=== PATIENT | male | born 1950 | race Caucasian/White ===

== ENCOUNTER → 2019-05-29 | Outpatient (CLI) | payer OTHER ==
--- NOTE | 2019-05-29 16:40 | 2DMMODE ---
[facility] [address] [place] [address] 2 D/M-MODE ECHOCARDIOGRAM Name: JANICE ROASS Room #: REG CL Leela#: [id number] Admission: 05/29/19 Attend Phys: See Herrera, Discharge: Date of : 54 Report #: [id number] THIS REPORT FOR: //name// APPROVED REPORT Study performed: 05/29/2019 14:17:52 EXAM: Comprehensive 2D, Doppler, and color-flow Echocardiogram Patient Location: Out-Patient Status: routine BSA: 2.27 HR: 70 bpm BP: 122/68 mmHg Rhythm: PVC's Other Information Study Quality: Good Indications Tachycardia 2D Dimensions RVDd: 35.66 mm IVSd: 12.90 (7-11mm) LVOT Diam: 20.20 (18-24mm) LVDd: 48.16 mm PWd: 10.66 (7-11mm) Ascending Ao: 36.87 (22-36mm) LVDs: 31.30 (25-40mm) Aortic Root: 37.51 mm IVC: 19.00 mm Volumes Left Atrial Volume (Systole) Single Plane 4CH: 32.70 mL Single Plane 2CH: 63.14 mL LA ESV Index: 23.00 mL/m2 Aortic Valve AoV Peak Raul.: 1.15 m/s AO Peak Gr.: 5.33 mmHg LVOT Max P.53 mmHg LVOT Max V: 0.94 m/s ELZA Vmax: 2.61 cm2 Mitral Valve E/A Ratio: 31.0 MV E Max Raul.: 0.93 m/s MV A Raul.: 0.03 m/s [facility] [address] [place] [address] 2 D/M-MODE ECHOCARDIOGRAM Name: ALISON,JANICE Room #: REG CL [facility]#: [id number] Admission: 05/29/19 Attend Phys: See Herrera, Discharge: Date of : 54 Report #: [id number] IVRT: 69.20 ms Pulmonary Valve PV Peak Raul.: 0.83 m/s PV Peak Gr.: 2.74 mmHg Pulmonary Vein P Vein S: 0.55 m/s P Vein A: 0.27 m/s P Vein D: 0.40 m/s P Vein A Dur.: 101.5 msec P Vein S/D Ratio: 1.38 Tricuspid Valve TR Peak Raul.: 2.20 m/s RAP Estimate: 5.00 mmHg TR Peak Gr.: 19.32 mmHg PA Pressure: 24.00 mmHg Left Ventricle The left ventricle is normal size. There is normal LV segmental wall motion. There is normal left ventricular wall thickness. The left ventricular systolic function is normal. LVEF is 55-60%. The left ventricular diastolic function is normal. Right Ventricle The right ventricle is normal size. The right ventricular systolic function is normal. Atria The left atrium size is normal. The right atrium size is normal. Aortic Valve The aortic valve is normal in structure. No aortic regurgitation is present. There is no aortic valvular stenosis. Mitral Valve The mitral valve is normal in structure. Mild mitral regurgitation. No evidence of mitral valve stenosis. Tricuspid Valve The tricuspid valve is normal in structure. Mild tricuspid regurgitation. Estimated PAP is 24mmHg. Pulmonic Valve The pulmonary valve is normal in structure. Trace pulmonic regurgitation. [employer] [facility] [place] [address] [place] [address] 2 D/M-MODE ECHOCARDIOGRAM Name: JANICE ROSAS Room #: REG CL Maranda#: [id number] Admission: 05/29/19 Attend Phys: See Herrera, Discharge: Date of : 54 Report #: [id number] Aortic root is at the upper normal of limits. The ascending aorta is normal in size. IVC is normal in size and collapses >50% with inspiration. Pericardium There is no pericardial effusion. <Conclusion> The left ventricular systolic function is normal. There is normal LV segmental wall motion. LVEF is 55-60%. Normal diastolic function The aortic valve is normal in structure. No aortic regurgitation or stenosis The mitral valve is normal in structure. Mild mitral regurgitation. Mild tricuspid regurgitation. Estimated pulmonary artery pressure of 24mmHg. There is no pericardial effusion. <ELECTRONICALLY SIGNED> By: See Herrera MD, FACC 05/29/19 1640 [id number] See Herrera MD, FACC /INF
== END ==
LOC: CV 14:04
DX: I08.1 Rheumatic disorders of both mitral and tricuspid valves (principal)